=== PATIENT | male | born 1960 | race Caucasian/White ===

== ENCOUNTER 2017-02-06 09:30 | Emergency (ER) | payer MEDICARE, BC ==
--- NOTE | 2017-02-06 09:53 | Emergency Department Record ---
History of Present Illness - General Chief complaint: ENT Stated complaint: NOSE INFECTION Time Seen by Provider: 02/06/17 09:45 Source: Patient Mode of Arrival: Wheelchair - History of Present Illness Initial comments: right nostril skin infection and the drained it with a tool and it is getting worse and he had this happened before and he has an ENT appointment next week with DR. Damon. primary Dr. Hampton Onset/Timin -: Days(s) Location: Nose Severity: Moderate Severity scale (1-10): 6 Quality: Aching Consistency: Constant Improves with: None Worsens with: None - Related Data Previous Rx's Medication Instructions Recorded Cephalexin [Keflex] 500 mg PO QID #40 cap 02/06/17 Sulfamethoxazole/Trimethoprim 1 each PO BID #20 tablet 02/06/17 [Bactrim Ds Tablet] Allergies Allergy/AdvReac Type Severity Reaction Status Date / Time iodine [IODINE] Allergy Unknown PT UNSURE Verified 02/06/17 09:36 OF REACTION codeine Allergy PT UNSURE Verified 02/06/17 09:36 OF REACTION Travel Screening - Travel/Exposure Within Last 30 Days Have you traveled within the last 30 days?: No Review of Systems Reviewed: No additional complaints except as noted below Constitutional: Reports: As per HPI. Denies: Chills, Fever, Malaise, Night sweats, Weakness, Weight change Eyes: Reports: As per HPI. Denies: Eye discharge, Eye pain, Photophobia, Vision change ENT: Reports: As per HPI. Denies: Congestion, Dental pain, Ear pain, Epistaxis , Hearing loss, Throat pain Respiratory: Reports: As per HPI. Denies: Cough, Dyspnea, Hemoptysis, Stridor, Wheezes Cardiovascular: Reports: As per HPI. Denies: Arrhythmia, Chest pain, Dyspnea on exertion, Edema, Murmurs, Orthopnea, Palpitations, Paroxysmal nocturnal dyspnea, Rheumatic Fever, Syncope Endocrine: Reports: As per HPI. Denies: Fatigue, Heat or cold intolerance, Polydipsia, Polyuria Gastrointestinal: Reports: As per HPI. Denies: Abdominal pain, Constipation, Diarrhea, Hematemesis, Hematochezia, Melena, Nausea, Vomiting Genitourinary: Reports: As per HPI. Denies: Dysuria, Frequency, Hematuria, Incontinence, Retention, Testicular pain, Testicular mass, Urgency Musculoskeletal: Reports: As per HPI. Denies: Arthralgia, Back pain, Gout, Joint swelling, Myalgia, Neck pain Skin: Reports: As per HPI. Denies: Bruising, Change in color, Change in hair/ nails, Lesions, Pruritus, Rash Neurological: Reports: As per HPI. Denies: Abnormal gait, Confusion, Headache, Numbness, Paresthesias, Seizure, Tingling, Tremors, Vertigo, Weakness Psychiatric: Reports: As per HPI. Denies: Anxiety, Auditory hallucinations, Depression, Homicidal thoughts, Suicidal thoughts, Visual hallucinations Hematological/Lymphatic: Reports: As per HPI. Denies: Anemia, Blood Clots, Easy bleeding, Easy bruising, Swollen glands Past Medical History - SOCIAL HISTORY Smoking Status: Never smoker Alcohol Use: None Drug Use: None - RESPIRATORY Hx Respiratory Disorders: No - CARDIOVASCULAR Hx Cardio Disorders: No - NEURO Hx Neuro Disorders: No - GI Hx GI Disorders: No - Hx Genitourinary Disorders: No - ENDOCRINE Hx Endocrine Disorders: No - MUSCULOSKELETAL Hx Musculoskeletal Disorders: No - PSYCH Hx Psych Problems: No - HEMATOLOGY/ONCOLOGY Hx Hematology/Oncology Disorders: No Family Medical History Any Significant Family History?: No Physical Exam - General General Appearance: Alert, Oriented x3, Cooperative, No acute distress - Head Head exam: Normal inspection - Eye Eye exam: Normal appearance, PERRL Pupils: Normal accommodation - ENT ENT exam: Normal exam, Mucous membranes moist, Normal external ear exam, Normal orophraynx, TM's normal bilaterally Ear exam: Normal external inspection. negative: External canal tenderness Nasal Exam: Normal inspection. negative: Discharge, Sinus tenderness Mouth exam: Normal external inspection, Tongue normal Teeth exam: Normal inspection. negative: Dental caries Throat exam: Normal inspection. negative: Tonsillar erythema, Tonsillar exudate - Neck Neck exam: Normal inspection, Full ROM. negative: Tenderness - Respiratory Respiratory exam: Normal lung sounds bilaterally. negative: Respiratory distress - Cardiovascular Cardiovascular Exam: Regular rate, Normal rhythm, Normal heart sounds - GI/Abdominal GI/Abdominal exam: Soft, Normal bowel sounds. negative: Tenderness - Rectal Rectal exam: Deferred - exam: Deferred - Extremities Extremities exam: Normal inspection, Full ROM, Normal capillary refill. negative: Tenderness - Back Back exam: Reports: Normal inspection, Full ROM. Denies: Muscle spasm, Rash noted, Tenderness - Neurological Neurological exam: Alert, Normal gait, Oriented X3, Reflexes normal - Psychiatric Psychiatric exam: Normal affect, Normal mood - Skin Skin exam: Dry, Intact, Normal color, Warm Course Vital Signs 02/06/17 09:32 Temperature 97.4 F L Pulse Rate 84 Respiratory 18 Rate Blood Pressure 116/84 Pulse Ox 98 Disposition Clinical Impression: Furuncle Disposition: Home, Self-Care Condition: (1) Good Instructions: Furunculosis and Carbunculosis (ED) Additional Instructions: follow up with Dr. Hampton in 2 weeks follow up with ENT as scheduled next week Prescriptions: Cephalexin [Keflex] 500 mg PO QID #40 cap Sulfamethoxazole/Trimethoprim [Bactrim Ds Tablet] 1 each PO BID #20 tablet Quality - Quality Measures Quality Measures: N/A - Blood Pressure Screening Does Patient Have Any of the Following: No Blood Pressure Classification: Pre-Hypertensive BP Reading Systolic Measurement: 116 Diastolic Measurement: 84 Screening for High Blood Pressure: < Pre-Hypertensive BP, F/U Documented > [ G8950] Pre-Hypertensive Follow-up Interventions: Referral to alternative/primary care provider.
== END 2017-02-06 10:04 | disposition home or self-care (01) ==
LOC: ER 09:30
DX: J34.0 Abscess, furuncle and carbuncle of nose (principal)
CPT/HCPCS: 99282

== ENCOUNTER 2019-01-05 12:42 | Observation (INO) | payer MEDICARE, BC ==
[2019-01-05] MEDS ORDERED: ACETAMINOPHEN 1,000 MG/100 ML BTL IVPB ONE (13:17)
[2019-01-05] MEDS ORDERED: 0.9 % SODIUM CHLORIDE 1,000 ML BAG IV ONE (13:17)
--- NOTE | 2019-01-05 13:21 | Emergency Department Record ---
History of Present Illness - General Chief Complaint: Headache Migraine Stated Complaint: HEADACHE, NO APPETITE Time Seen by Provider: 01/05/19 13:03 Source: Patient Mode of Arrival: Wheelchair Limitations: No limitations - History of Present Illness Initial Comments: The patient is here due to not feeling well for 2-3 days. He has had the gradual onset of a mild NAVARRO, body aches, runny nose, and decreased urine output. He usually urinates 300-400 mls at a time and for the last day or so has only been going about 100 mls. The patient also has been exposed to Influenza A at home. He does have a hx of a neck surgery complication in the past and is a qu adraplegic. MD Complaint: Other Onset/Timin -: Days(s) Onset Description: Gradual Severity scale (1-10): 3 Quality: Aching Consistency: Constant Improves With: Nothing Treatments Prior to Arrival: Other - Related Data Allergies Allergy/AdvReac Type Severity Reaction Status Date / Time iodine [IODINE] Allergy Unknown PT UNSURE Verified 01/05/19 14:56 OF REACTION codeine Allergy PT UNSURE Verified 01/05/19 14:56 OF REACTION Travel Screening - Travel/Exposure Within Last 30 Days Have you traveled within the last 30 days?: No - Travel/Exposure Within Last Year Have you traveled outside the [place] 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 negative: Tonsillar erythema, Tonsillar exudate - Neck Neck exam: Normal inspection, Full ROM. negative: Meningismus (the neck is very supple.), Tenderness - Respiratory Respiratory exam: Normal lung sounds bilaterally. negative: Respiratory distress - Cardiovascular Cardiovascular Exam: Regular rate, Normal rhythm, Normal heart sounds - GI/Abdominal GI/Abdominal exam: Soft, Normal bowel sounds. negative: Tenderness - Extremities Extremities exam: negative: Normal inspection - Neurological Neurological exam: Abnormal gait, Alert, Motor sensory deficit (Thoracic paraplegia.). negative: Normal gait - Psychiatric Psychiatric exam: negative: Anxious - Skin Skin exam: negative: Rash Course Vital Signs 01/05/19 12:49 Temperature 97.5 F L Pulse Rate 81 Respiratory 18 Rate Blood Pressure 132/91 Pulse Ox 96 - Reevaluation(s) Reevaluation #1: The patient is doing a lot better at this time. He denies any NAVARRO or neck pain at this time and his repeat vitals are WNL's. We are still waiting on his urine at this time. 01/05/19 14:30 Reevaluation #2: The patient is doing well at this time and is resting comfortably. Due to the presumed kidney infection I did recommend inpatient treatment overnight and the patient did agree to the plan. 01/05/19 15:04 Reevaluation #3: I did discuss the patient with Anneliese and she does accept the patient for Dr. Caldwell. 01/05/19 15:08 Medical Decision Making - Data Complexity MDM Data: Labs Ordered and/or Reviewed, X-Ray Ordered and/or Reviewed - Lab Data Result diagrams: 01/05/19 13:40 01/05/19 13:40 - Radiology Data Radiology results: Report reviewed (CXR: Neg.) Disposition Disposition: Admit Clinical Impression: Pyelonephritis Disposition: Still a Patient at [facility] Decision to Admit: Admit from ER Decision to Admit Date: 01/05/19 Decision to Admit Time: 15:10 Accepting Physician: Javi Time Discussed w/Accepting Physician: 15:10 Condition: (2) Stable Forms: Patient Portal Access Time of Disposition: 15:10 Quality - Quality Measures Quality Measures: N/A - Blood Pressure Screening View Details: Yes Does Patient Have Any of the Following: No Blood Pressure Classification: Hypertensive Reading Systolic Measurement: 132 Diastolic Measurement: 91 Screening for High Blood Pressure: < First Hypertensive BP, F/U Documented > [G8950] First Hypertensive Follow-up Interventions: Referral to alternative/primary care provider.
[2019-01-05 13:50] LABS: ABSOLUTE NEUTROPHIL COUNT 11.98; BASO % 0.1 % (0-6); EOS % 0.5 % (0-6); HEMATOCRIT 45.6 % (42.0-52.0); HEMOGLOBIN 14.2 gm/dl (14.0-18.0); LYMPH % 10.8 % (16-45); MEAN CELL VOLUME 90.7 fl (81-97); MEAN CORPUSCULAR HEMOGLOBIN 28.2 pg (27-33); MEAN CORPUSCULAR HGB CONC 31.1 g/dl (32-36); MEAN PLATELET VOLUME 10.9 fl (7.4-10.4); MONO % 9.6 % (0-9); PLATELET COUNT 244 K/uL (130-400); RED BLOOD COUNT 5.03 M/uL (4.40-5.70); RED CELL DISTRIBUTION WIDTH 14.8 % (11.5-14.5); WHITE BLOOD COUNT W/O DIFF 15.2 K/uL (4.2-12.2)
--- NOTE | 2019-01-05 14:04 | RADIOLOGY REPORT ---
EXAMINATION: Single View Chest EXAM DATE: 01/05/2019 2:00 PM TECHNIQUE: Single view chest INDICATION: cough COMPARISON: None. ENCOUNTER: Not applicable FINDINGS: No acute infiltrate, pleural effusion or vascular congestion evident. Cardiomediastinal silhouette un remarkable for technique. IMPRESSION: No acute disease evident. Dictated by: Yohan Rivero MD on 01/05/2019 2:01 PM. .
[2019-01-05 14:06] LABS: INFLUENZA A NEGATIVE (NEGATIVE); INFLUENZA B NEGATIVE (NEGATIVE)
[2019-01-05 14:20] LABS: BLOOD UREA NITROGEN 7 mg/dL (6-20); CREATININE 0.9 mg/dL (0.7-1.2); EST GLOMERULAR FILTRATION RATE > 60 mL/min
[2019-01-05 14:21] LABS: LIPASE 28 U/L (13-60); TOTAL PROTEIN 7.3 g/dL (6.6-8.7)
[2019-01-05 14:23] LABS: GLUCOSE,RANDOM 99 mg/dL (74-109)
[2019-01-05 14:25] LABS: ALT/SGPT 25 U/L (<41)
[2019-01-05 14:26] LABS: ALBUMIN 4.1 g/dL (4.0-5.0); ALKALINE PHOSPHATASE 98 U/L (40-129); AST/SGOT 21 U/L (10.0-50.0); BILIRUBIN,DIRECT < 0.2 mg/dL (0-0.3); C-REACTIVE PROTEIN 26.01 mg/dL (<0.5)
[2019-01-05 14:49] LABS: URINE APPEARANCE CLEAR; URINE BILIRUBIN NEGATIVE (NEGATIVE); URINE BLOOD TRACE-I (NEGATIVE); URINE COLOR YELLOW; URINE GLUCOSE (UA) NEGATIVE (NEGATIVE); URINE KETONE TRACE (NEGATIVE); URINE LEUKOCYTE ESTERASE LARGE (NEGATIVE); URINE NITRITE NEGATIVE (NEGATIVE); URINE PROTEIN NEGATIVE (NEGATIVE); URINE UROBILINOGEN 0.2 E.U./dL (0.20 - 1.00)
[2019-01-05 14:56] LABS: URINE BACTERIA FEW; URINE EPITHELIAL CELLS NONE SEEN (FEW); URINE RBC NONE SEEN (NONE SEEN); URINE WBC 36 - 50 (0-2/hpf)
[2019-01-05] MEDS ORDERED: CEFTRIAXONE 1GM/50ML BAG 1 GM/50 ML BAG IVPB ONE (14:58)
[2019-01-05] MEDS ORDERED: TRAMADOL HCL 200 MG PO SCH (16:20)
[2019-01-05] MEDS ORDERED: ACETAMINOPHEN 325 MG TAB PO PRN (16:20)
[2019-01-05] MEDS ORDERED: CEFTRIAXONE 1GM/50ML BAG 1 GM/50 ML BAG IVPB SCH (16:20)
[2019-01-05] MEDS ORDERED: 0.9 % SODIUM CHLORIDE 1000ML 1,000 ML IV ONE (16:20)
[2019-01-05] MEDS ORDERED: IBUPROFEN 400 MG TABLET PO PRN (16:34)
[2019-01-05] MEDS ORDERED: TRAMADOL HCL 50 MG TABLET PO PRN (20:08)
[2019-01-05] MEDS ORDERED: PREGABALIN 50 MG CAPSULE PO SCH (22:00)
[2019-01-05] MEDS ORDERED: BACLOFEN 10 MG TABLET PO SCH (22:00)
[2019-01-06] MEDS: PREGABALIN 50 MG CAPSULE PO SCH ×2 (00:25→06:25)
[2019-01-06] MEDS ORDERED: CEFTRIAXONE 1GM/50ML BAG 1 GM/50 ML BAG IVPB SCH (03:00)
[2019-01-06] MEDS ORDERED: 0.9 % SODIUM CHLORIDE 1000ML 1,000 ML IV PRN (03:32)
[2019-01-06] MEDS ORDERED: BACLOFEN 10 MG TABLET PO SCH (06:00)
[2019-01-06 07:06] LABS: BASO % 0.2 % (0-6); EOS % 1.7 % (0-6); GRAN % 77.6 % (47-80); HEMATOCRIT 42.6 % (42.0-52.0); HEMOGLOBIN 13.6 gm/dl (14.0-18.0); LYMPH % 12.3 % (16-45); MEAN CELL VOLUME 91.2 fl (81-97); MEAN CORPUSCULAR HEMOGLOBIN 29.1 pg (27-33); MEAN CORPUSCULAR HGB CONC 31.9 g/dl (32-36); MEAN PLATELET VOLUME 10.9 fl (7.4-10.4); MONO % 8.2 % (0-9); PLATELET COUNT 205 K/uL (130-400); RED BLOOD COUNT 4.67 M/uL (4.40-5.70); RED CELL DISTRIBUTION WIDTH 14.6 % (11.5-14.5); WHITE BLOOD COUNT W/O DIFF 8.9 K/uL (4.2-12.2)
[2019-01-06 07:26] LABS: BLOOD UREA NITROGEN 9 mg/dL (6-20); CREATININE 0.9 mg/dL (0.7-1.2); EST GLOMERULAR FILTRATION RATE > 60 mL/min; GLUCOSE,RANDOM 86 mg/dL (74-109)
--- NOTE | 2019-01-06 09:25 | History & Physical ---
History of Present Illness - Date of Service Date of Service for History & Physical: 01/06/19 - History of Present Illness Admitting Diagnosis: 1. Acute Pyelonephritis History of Present Illness: 58 year old male patient presented to ED with complaints of not feeling well for 2-3 days prior to arrival. Patient noted a headache, confusion, fatigue, and difficulty urinating yesterday. Denied any chest pain, shortness of breath, or fevers. Patient reports a known exposure to influenza A. 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 PCP: Dr. Ari Hampton ([facility] internal medicine) ED Course: Influenza negative WBC 15.2, CRP 26 UA: large leuk, 36-50 WBCs CXR: no acute process Rocephin 1gm 01/06/19: Patient A&O x 4, resting comfortably in wheelchair with at bedside. Patient reports confusion has resolved, no headache at this time, and no further urinary symptoms. Tolerating PO intake, frequent urination and reporting clear urine as well. Travel Screening - Travel/Exposure Within Last 30 Days Have you traveled within the last 30 days?: No - Travel/Exposure Within Last Year Have you traveled outside the [place] in the last year?: No - Additonal Travel Details Have you been exposed to anyone with a communicable illness?: No - Travel Symptoms Symptom Screening: None Review of Systems Reviewed: No additional complaints except as noted below Constitutional: Reports: As per HPI, Malaise, Weakness Eyes: Reports: As per HPI ENT: Reports: As per HPI Respiratory: Reports: As per HPI Cardiovascular: Reports: As per HPI Endocrine: Reports: As per HPI Gastrointestinal: Reports: As per HPI Genitourinary: Reports: As per HPI, Retention Musculoskeletal: Reports: As per HPI Skin: Reports: As per HPI Neurological: Reports: As per HPI, Confusion Psychiatric: Reports: As per HPI Hematological/Lymphatic: Reports: As per HPI Past Medical History - SOCIAL HISTORY Smoking Status: Former smoker Alcohol Use: None Drug Use: None - RESPIRATORY Hx Respiratory Disorders: Yes Comment:: decreased from paralization - CARDIOVASCULAR Hx Cardio Disorders: No - NEURO Hx Neuro Disorders: No Comment:: 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 - MUSCULOSKELETAL Hx Musculoskeletal Disorders: Yes Comment:: confined to WC, paralized - PSYCH Hx Psych Problems: No - HEMATOLOGY/ONCOLOGY Hx Hematology/Oncology Disorders: No Family Medical History Any Significant Family History?: Yes Hx Stroke: Mother H&P Meds/Allergies - Allergies Allergies: Allergies Allergy/AdvReac Type Severity Reaction Status Date / Time iodine [IODINE] Allergy Unknown PT UNSURE Verified 01/05/19 14:56 OF REACTION codeine Allergy PT UNSURE Verified 01/05/19 14:56 OF REACTION - Home Medications Home Medications Medication Instructions Recorded Confirmed Last Taken Pregabalin [Lyrica] 1 tab PO QID 01/05/19 01/05/19 01/05/19 - Active Medications Active Medications: Current Medications Acetaminophen (Tylenol 325mg) 650 mg PO Q6H PRN PRN Reason: PAIN - MILD(1-4)/FEVER Last Admin: 01/05/19 20:27 Dose: 650 mg Documented by: Baclofen (Lioresal) 10 mg PO 0600,1800 [facility] Last Admin: 01/06/19 06:25 Dose: 10 mg Documented by: CEFTRIAXONE 1GM/50ML BAG (Ceftriaxone 1 Gm-D5w Bag) 1 gm in 50 mls @ 100 mls/hr IVPB Q12H [facility] Last Infusion: 01/06/19 03:40 Dose: Infused Documented by: Sodium Chloride () 1,000 mls @ 100 mls/hr IV .Q10H PRN PRN Reason: LARGE VOLUME IV Last Admin: 01/06/19 03:06 Dose: 100 mls/hr Documented by: Ibuprofen (Motrin 400mg) 800 mg PO Q8H PRN PRN Reason: PAIN - MODERATE (5-7) Last Admin: 01/05/19 16:38 Dose: 800 mg Documented by: Pregabalin (Lyrica) 150 mg PO 0000,0600,1200,1800 [facility] Last Admin: 01/06/19 06:25 Dose: 150 mg Documented by: Tramadol HCl (Ultram) 50 mg PO Q4H PRN PRN Reason: PAIN - SEVERE (8-10) Physical Exam - Vital Signs Vital Signs: Vital Signs - Last 24 Hrs Temp Pulse Pulse Resp BP BP BP 01/06/19 09:23 97.8 F 64 16 115/64 11/29/19 06:00 98.5 F 84 20 95/57 01/06/19 01:00 98.1 F 20 L 20 112/68 01/05/19 20:30 97.7 F 64 20 105/64 01/05/19 18:20 62 16 116/81 01/05/19 16:54 65 18 01/05/19 16:20 97.7 F 67 16 118/79 01/05/19 14:50 98.0 F 65 18 99/58 01/05/19 12:49 97.5 F L 81 18 132/91 Pulse Ox 01/06/19 09:23 94 L 01/06/19 06:00 98 01/06/19 01:00 96 01/05/19 20:30 96 01/05/19 18:20 96 01/05/19 16:54 01/05/19 16:20 97 01/05/19 14:50 96 01/05/19 12:49 96 - General General Appearance: Alert, Oriented x3, Cooperative, No acute distress Limitations: No limitations - Head Head exam: Atraumatic, Normocephalic, Normal inspection - Eye Eye exam: Normal appearance, PERRL, EOMI - ENT ENT exam: Mucous membranes moist, Normal external ear exam Throat exam: negative: Tonsillar erythema, Tonsillar exudate - Neck Neck exam: Normal inspection, Full ROM. negative: Meningismus, Tenderness - Respiratory Respiratory exam: Normal lung sounds bilaterally. negative: Respiratory distre ss - Cardiovascular Cardiovascular Exam: Regular rate, Normal rhythm, Normal heart sounds Peripheral Pulses: 2+: Radial (R), Radial (L), Dorsalis Pedis (R), Dorsalis Pedis (L) - GI/Abdominal GI/Abdominal exam: Soft, Normal bowel sounds. negative: Tenderness - Rectal Rectal exam: Deferred - exam: Deferred - Extremities Extremities exam: negative: Normal inspection, Calf tenderness, Pedal edema, Tenderness - Neurological Neurological exam: Abnormal gait, Alert, Motor sensory deficit (Thoracic paraplegia.). negative: Normal gait - Psychiatric Psychiatric exam: negative: Anxious - Skin Skin exam: negative: Rash Results - Labs Result Diagrams: 01/06/19 06:58 01/06/19 06:58 Labs Last 24 Hours: Laboratory Results - last 24 hr 01/05/19 01/05/1901/05/19 13:40 13:40 13:40 WBC 15.2 H RBC 5.03 Hgb 14.2 Hct 45.6 MCV 90.7 MCH 28.2 MCHC 31.1 L RDW 14.8 H Plt Count 244 MPV 10.9 H Gran % 79.0 Lymphocytes % 10.8 L Monocytes % 9.6 H Eosinophils % 0.5 Basophils % 0.1 Absolute Neutrophils 11.98 Sodium 134 L Potassium 4.0 Chloride 96 L Carbon Dioxide 24.0 Anion Gap 14.0 BUN 7 Creatinine 0.9 Estimated GFR > 60 Random Glucose 99 Calcium 9.2 Total Bilirubin 0.70 Direct Bilirubin < 0.2 AST 21 ALT 25 Alkaline Phosphatase 98 C-Reactive Protein 26.01 H Total Protein 7.3 Albumin 4.1 Lipase 28 Procalcitonin 0.181 Urine Color Urine Appearance Urine pH Ur Specific [place] Urine Protein Urine Glucose (UA) Urine Ketones Urine Blood Urine Nitrite Urine Bilirubin Urine Urobilinogen Ur Leukocyte Esterase Urine RBC Urine WBC Ur Epithelial Cells Urine Bacteria Influenza Type A Ag Negative Influenza Type B Ag Negative 01/05/19 01/06/19 01/06/19 14:40 06:58 06:58 WBC 8.9 RBC 4.67 Hgb 13.6 L Hct 42.6 MCV 91.2 MCH 29.1 MCHC 31.9 L RDW 14.6 H Plt Count 205 MPV 10.9 H Gran % 77.6 Lymphocytes % 12.3 L Monocytes % 8.2 Eosinophils % 1.7 Basophils % 0.2 Absolute Neutrophils 6.90 Sodium 141 Potassium 4.1 Chloride 103 Carbon Dioxide 27.0 Anion Gap 11.0 BUN 9 Creatinine 0.9 Estimated GFR > 60 Random Glucose 86 Calcium 8.7 Total Bilirubin Direct Bilirubin AST ALT Alkaline Phosphatase C-Reactive Protein Total Protein Albumin Lipase Procalcitonin Urine Color Yellow Urine Appearance Clear Urine pH 6.0 Ur Specific [place] <= 1.005 Urine Protein Negative Urine Glucose (UA) Negative Urine Ketones Trace H Urine Blood Trace-i Urine Nitrite Negative Urine Bilirubin Negative Urine Urobilinogen 0.2 Ur Leukocyte Esterase Large H Urine RBC None seen Urine WBC 36 - 50 Ur Epithelial Cells None seen Urine Bacteria Few Influenza Type A Ag Influenza Type B Ag 01/06/19 06:58 WBC RBC Hgb Hct MCV MCH MCHC RDW Plt Count MPV Gran % Lymphocytes % Monocytes % Eosinophils % Basophils % Absolute Neutrophils Sodium Potassium Chloride Carbon Dioxide Anion Gap BUN Creatinine Estimated GFR Random Glucose Calcium Total Bilirubin Direct Bilirubin AST ALT Alkaline Phosphatase C-Reactive Protein 19.69 H Total Protein Albumin Lipase Procalcitonin Urine Color Urine Appearance Urine pH Ur Specific [place] Urine Protein Urine Glucose (UA) Urine Ketones Urine Blood Urine Nitrite Urine Bilirubin Urine Urobilinogen Ur Leukocyte Esterase Urine RBC Urine WBC Ur Epithelial Cells Urine Bacteria Influenza Type A Ag Influenza Type B Ag VTE H&P Assessment - Risk for VTE Risk for VTE: Yes Risk Level: Moderate Risk Assessment Date: 01/06/19 Risk Assessment Time: 10:28 VTE Orders Placed or Will Be Placed: No VTE Reason for No Prophylaxis: Not Indicated (admitted < 24 hours) Plan - Detailed Diagnosis and Plan (1) Pyelonephritis Current Visit: Yes Status: Acute Base Code: N12 - TUBULO-INTERSTITIAL NEPHRITIS, NOT SPCF ACUTE OR CHRONIC Comment: 01/06/19: - UA: large leuk, 36-50 WBC - Afebrile - WBC 15, CRP 26 on admission. Improved to WBC 8.9 and CRP 19 today - Continue Rocephin 1gm IVPB - Encourage PO fluids (2) DVT prophylaxis Current Visit: Yes Status: Acute Base Code: Z29.9 - ENCOUNTER FOR PROPHYLACTIC MEASURES, UNSPECIFIED Comment: 01/06/19: - Anticipated discharge within 24 hours - At baseline activity due to being wheelchair bound (3) Full code status Current Visit: Yes Status: Acute Base Code: Z78.9 - OTHER SPECIFIED HEALTH STATUS Comment: 01/06/19: - Full code this admission
--- NOTE | 2019-01-06 11:34 | Discharge Summary ---
Providers Discharge Summary Date: 01/06/19 Date of admission: 01/05/19 16:00 Expected Date of Discharge: 01/06/19 Attending physician: ALIDA TAI Physical Exam - Vital Signs Vital Signs: Vital Signs - Last 24 Hrs Temp Pulse Pulse Resp BP BP BP 01/06/19 09:23 97.8 F 64 16 115/64 01/06/19 09:00 16 01/06/19 06:00 98.5 F 84 20 95/57 01/06/19 01:00 98.1 F 20 L 20 112/68 01/05/19 20:30 97.7 F 64 20 105/64 01/05/19 18:20 62 16 116/81 01/05/19 16:54 65 18 01/05/19 16:20 97.7 F 67 16 118/79 01/05/19 14:50 98.0 F 65 18 99/58 01/05/19 12:49 97.5 F L 81 18 132/91 Pulse Ox 01/06/19 09:23 94 L 01/06/19 09:00 01/06/19 06:00 98 01/06/19 01:00 96 01/05/19 20:30 96 01/05/19 18:20 96 01/05/19 16:54 01/05/19 16:20 97 01/05/19 14:50 96 01/05/19 12:49 96 - General General Appearance: Alert, Oriented x3, Cooperative, No acute distress Limitations: No limitations - Head Head exam: Atraumatic, Normocephalic, Normal inspection - Eye Eye exam: Normal appearance, PERRL, EOMI - ENT ENT exam: Mucous membranes moist, Normal external ear exam Throat exam: negative: Tonsillar erythema, Tonsillar exudate - Neck Neck exam: Normal inspection, Full ROM. negative: Meningismus, Tenderness - Respiratory Respiratory exam: Normal lung sounds bilaterally. negative: Respiratory distress - Cardiovascular Cardiovascular Exam: Regular rate, Normal rhythm, Normal heart sounds Peripheral Pulses: 2+: Radial (R), Radial (L), Dorsalis Pedis (R), Dorsalis Pedis (L) - GI/Abdominal GI/Abdominal exam: Soft, Normal bowel sounds. negative: Tenderness - Rectal Rectal exam: Deferred - exam: Deferred - Extremities Extremities exam: negative: Normal inspection, Calf tenderness, Pedal edema, Tenderness - Neurological Neurological exam: Abnormal gait, Alert, Motor sensory deficit (Thoracic paraplegia.). negative: Normal gait - Psychiatric Psychiatric exam: negative: Anxious - Skin Skin exam: negative: Rash Hospitalization - Hospitalization Admission Diagnosis: 1. Acute Pyelonephritis - Problem List/Discharge Diagnosis (1) Pyelonephritis Current Visit: Yes Status: Acute Base Code: N12 - TUBULO-INTERSTITIAL NEPHRITIS, NOT SPCF ACUTE OR CHRONIC Comment: 01/06/19: - UA: large leuk, 36-50 WBC - Urine culture pending - Afebrile - WBC 15, CRP 26 on admission. Improved to WBC 8.9 and CRP 19 today - Continue Rocephin 1gm IVPB - Cipro 500mg BID x 7 days upon discharge - Encourage PO fluids (2) DVT prophylaxis Current Visit: Yes Status: Acute Base Code: Z29.9 - ENCOUNTER FOR PROPHYLACTIC MEASURES, UNSPECIFIED Comment: 01/06/19: - Anticipated discharge within 24 hours - At baseline activity due to being wheelchair bound (3) Full code status Current Visit: Yes Status: Acute Base Code: Z78.9 - OTHER SPECIFIED HEALTH STATUS Comment: 01/06/19: - Full code this admission - Hospitalization Course Disposition: Home, Self-Care Hospital Course: 58 year old male patient presented to ED with complaints of not feeling well for 2-3 days prior to arrival. Patient noted a headache, confusion, fatigue, and difficulty urinating yesterday. Denied any chest pain, shortness of breath, or fevers. Patient reports a known exposure to influenza A. 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 PCP: Dr. Ari Hampton ([facility] internal medicine) ED Course: Influenza negative WBC 15.2, CRP 26 UA: large leuk, 36-50 WBCs CXR: no acute process Rocephin 1gm 01/06/19: Patient A&O x 4, resting comfortably in wheelchair with at bed side. Patient reports confusion has resolved, no headache at this time, and no further urinary symptoms. Tolerating PO intake, frequent urination and reporting clear urine as well. Procedures: Imaging and X-Rays 01/05/19 13:22 CHEST 1 VIEW [RAD] Stat Abnormal Labs: Abnormal Lab Results 11/01/05/19 01/05/19 Range/Units 13:40 13:40 14:40 WBC 15.2 H (4.2-12.2) K/uL Hgb (14.0-18.0) gm/dl MCHC 31.1 L (32-36) g/dl RDW 14.8 H (11.5-14.5) % MPV 10.9 H (7.4-10.4) fl Lymphocytes % 10.8 L (16-45) % Monocytes % 9.6 H (0-9) % Sodium 134 L (136-145) mmol/L Chloride 96 L (98-107) mmol/L C-Reactive Protein 26.01 H (<0.5) mg/dL Urine Ketones Trace H (NEGATIVE) Ur Leukocyte Esterase Large H (NEGATIVE) 01/06/19 01/06/19 Range/Units 06:58 06:58 WBC (4.2-12.2) K/uL Hgb 13.6 L (14.0-18.0) gm/dl MCHC 31.9 L (32-36) g/dl RDW 14.6 H (11.5-14.5) % MPV 10.9 H (7.4-10.4) fl Lymphocytes % 12.3 L (16-45) % Monocytes % (0-9) % Sodium (136-145) mmol/L Chloride (98-107) mmol/L C-Reactive Protein 19.69 H (<0.5) mg/dL Urine Ketones (NEGATIVE) Ur Leukocyte Esterase (NEGATIVE) Condition at Discharge: (2) Stable Discharge Medications - Discharge Medications Prescriptions: Ciprofloxacin HCl [Cipro] 500 mg PO Q12HR #14 tablet Home Medications: Ambulatory Orders Baclofen 10 mg PO BID 90 Days #180 10/15/16 [Last Taken 1 Day Ago ~01/04/19] Tramadol HCl [Tramadol HCl ER] 200 mg PO BID PRN 90 Days #180 10/15/16 [Last Taken 1 Day Ago ~01/04/19] Pregabalin [Lyrica] 1 tab PO QID 01/05/19 [Last Taken 01/05/19] Ciprofloxacin HCl [Cipro] 500 mg PO Q12HR #14 tablet 01/06/19 [Last Taken Unknown] Discharge Plan - Discharge Instructions Activity at Discharge: Resume Usual Activities As Tolerated Diet at Discharge: Advance to Usual Diet Instructions: Ciprofloxacin (By mouth), Kidney Infection (DC) Additional Instructions: -Start the antibiotic, Cipro, tonight. You will take 1 tab twice a day until they are completed -Continue increasing water intake -Activity as tolerated -Resume your regular diet -Follow-up with PCP in 10-14 days Quality Measures - Quality Measures Quality Measures: Documentation of Current Medications in Medical Record, Screening for High Blood Pressure and F/U Documented - Current Medications Quality Measure: Measure #130: Documentation of Current Medications Documentation of Current Medications: <Current Medications Documented/Reviewed> [G8427] - Blood Pressure Screening Quality Measure: Screening for High Blood Pressure and Follow-Up Documented Does Patient Have Any of the Following: No Blood Pressure Classification: Hypertensive Reading Systolic Measurement: 132 Diastolic Measurement: 91 Screening for High Blood Pressure: < First Hypertensive BP, F/U Documented > [G8950] First Hypertensive Follow-up Interventions: Referral to alternative/primary care provider. - Elder Abuse Suspicion Index EASI Reference Information: Thor LANDRY, Sola C, Taz D, Flora Lazar.Development and validation of a tool to assist physicians identification of elder abuse: The Elder Abuse Suspicion Index (EASI ). Journal of Elder Abuse and Neglect, 2008; 20 (3): 276-300.
== END 2019-01-06 12:05 | disposition home or self-care (01) ==
LOC: ER 12:42 → MEDSURG 16:00
PROVIDERS: ADMIT Internal Medicine; ATTEND Internal Medicine
DX: N10 Acute pyelonephritis (principal); R39.12 Poor urinary stream; G90.4 Autonomic dysreflexia; G82.50 Quadriplegia, unspecified; Z87.891 Personal history of nicotine dependence; Z86.14 Personal history of Methicillin resistant Staphylococcus aureus infection
CPT/HCPCS: 83690; 85025 ×2; 80076; 86140 ×2; 80048 ×2; 81001; 87400; 84145; 71045; G0378 ×2; J0696 ×2; 96365; 96366; 99220; 99285; J7030